=== PATIENT | female | born 1960 | race Caucasian/White ===

== ENCOUNTER 2018-01-06 09:54 | Day surgery (SDC) | payer OTHER ==
[~2018-01-06] VITALS: Ht 175.3 cm; Wt 98.4 kg
[~2018-01-06 09:54] MED LIST: ADVAIR 500/501 DISK IH; AMITIZA24 MICROGR PO; ATIVAN1 MG PO; BUSPAR7.5 MG PO; CARAFATE1 GM PO; COGENTIN2 MG PO; COLACE100 MG PO; COZAAR100 MG PO; CYCLOBENZAPRINE10 MG PO; DULCOLAX5 MG PO; DUONEB 2.5-0.5 M3 ML PEP; ENABLEX15 MG PO; ENULOSE10 GM/15 M PO; FANAPT12 MG PO; FOLIC ACID1 MG PO; GABAPENTIN600 MG PO; GEODON80 MG PO; INCRUSE ELLI62.5 MCG IH; IRON325 M1 PO; LEVOTHYROXINE75 MCG PO; LIPITOR40 MG PO; LOTRISONE15 GM TP; MYRBETRIQ50 MG PO; OXYBUTYNIN CHLO15 MG PO; PANTOPRAZOLE SO40 MG PO; PATADAY2.5 ML BOTH EYES; PROAIR HFA8.5 GM IH; ROXICODONE5 MG PO; SEROQUEL200 MG PO; SINEQUAN25 MG PO; SPIRIVA18 MCG IH; TOFRANIL25 MG PO; WARFARIN SODIUM5 MG PO; XYZAL5 MG PO; ZOFRAN4 MG PO
[2018-01-06 10:26] LABS: INTER. NORMALIZED RATIO 1.2
[2018-01-06 10:47] VITALS: BP 117/67
[2018-01-06 17:50] VITALS: BP 141/76
[2018-01-06 19:04] VITALS: BP 117/60
[2018-01-06 20:30] VITALS: BP 134/66
[2018-01-06 20:49] VITALS: BP 134/66
[2018-01-06 23:15] VITALS: BP 132/92
[2018-01-07 04:34] VITALS: BP 132/66
[2018-01-07 06:19] LABS: INTER. NORMALIZED RATIO 1.2
[2018-01-07 12:13] VITALS: BP 105/59
[2018-01-07 12:24] VITALS: BP 91/55
[2018-01-07 15:35] LABS: HEMATOCRIT 34.3 % (36.0-46.0); MCH 28.1 PG (29.0-34.0); MCHC 32.1 G/DL (30.0-36.0); MCV 87.5 FL (83-99); PLATELET COUNT 226 K/uL (156-360); RBC DIS.WIDTH-SD 57.1 % (39-53); RED BLOOD COUNT 3.92 M/uL (3.80-5.20); WHITE BLOOD COUNT 8.7 K/uL (4.1-10.2)
[2018-01-07 16:18] VITALS: BP 105/55
[2018-01-07 19:58] VITALS: BP 118/58
[2018-01-08 00:01] VITALS: BP 120/71
[2018-01-08 07:33] LABS: INTER. NORMALIZED RATIO 1.3
[2018-01-08 07:41] VITALS: BP 145/79
[2018-01-08 09:52] LABS: APPEARANCE CLEAR ((CLEAR)); BILIRUBIN NEGATIVE; BLOOD NEGATIVE; COLOR STRAW ((YELLOW)); GLUCOSE (STRIP) NEGATIVE; KETONES NEGATIVE; LEUKOCYTES NEGATIVE; NITRITE NEGATIVE; PROTEIN (STRIP) NEGATIVE; SPECIFIC GRAVITY 1.005 (1.000-1.030); UCUL ADDED? NO; UROBILINOGEN 0.2 MG/DL (0.2-1.0)
[2018-01-08 15:46] VITALS: BP 112/51
[2018-01-08 19:31] VITALS: BP 98/55
[2018-01-08 21:00] VITALS: BP 119/68
[2018-01-09 01:38] VITALS: BP 119/55
[2018-01-09 06:07] LABS: INTER. NORMALIZED RATIO 1.3
[2018-01-09 07:17] VITALS: BP 107/55
== END 2018-01-09 14:29 ==
LOC: SDC 09:54 → 3EAST 18:37 → 2SOUTH 18:37 → ENRESERV 19:19 → 3EAST 20:12
PROVIDERS: Hospitalist; Podiatrist Foot & Ankle Surgery
DX: S93.491A Sprain of other ligament of right ankle, initial encounter (principal); Q66.7 Congenital pes cavus; M19.071 Primary osteoarthritis, right ankle and foot; D16.31 Benign neoplasm of short bones of right lower limb; I95.81 Postprocedural hypotension; R26.89 Other abnormalities of gait and mobility; R13.10 Dysphagia, unspecified; R07.0 Pain in throat; I31.3 Pericardial effusion (noninflammatory); I10 Essential (primary) hypertension; E78.5 Hyperlipidemia, unspecified; F41.9 Anxiety disorder, unspecified; Z79.01 Long term (current) use of anticoagulants; I70.0 Atherosclerosis of aorta; J44.9 Chronic obstructive pulmonary disease, unspecified; Z88.5 Allergy status to narcotic agent; Z88.8 Allergy status to other drugs, medicaments and biological substances; Z91.018 Allergy to other foods
CPT/HCPCS: 71250; 73630; 76000; 81003; 85027; 85610; 85730; 87040; 92610 GN; 93005; 93306; 94640; 94799; 97530 GP; C1713; C1769; C9113; G0378; G8978 CL; G8979 CJ; G8980 GP CK; G8987 GO CL; G8988 GO CJ; G8989 GO CL; G8996 GN CH; G8997 GN CH; G8998 GN CH; J0690; J1100; J1170; J1885; J1940; J2250; J2795; J3010; J7030; Q0175; Q4125; S0020

== ENCOUNTER 2018-01-09 09:29 | Inpatient (IN) | payer OTHER ==
[~2018-01-09] VITALS: Ht 175.3 cm; Wt 95.4 kg
[2018-01-09 15:18] VITALS: BP 119/59
[2018-01-10 00:22] VITALS: BP 103/60
[2018-01-10 06:25] VITALS: BP 130/78
[2018-01-10 06:37] LABS: HEMATOCRIT 37.1 % (36.0-46.0); HEMOGLOBIN 11.6 G/DL (11.9-15.5); MCH 27.8 PG (29.0-34.0); MCHC 31.3 G/DL (30.0-36.0); MCV 88.8 FL (83-99); PLATELET COUNT 230 K/uL (156-360); RBC DIS.WIDTH-CV 17.5 % (11.8-14.6); RBC DIS.WIDTH-SD 57.5 % (39-53); RED BLOOD COUNT 4.18 M/uL (3.80-5.20); WHITE BLOOD COUNT 6.6 K/uL (4.1-10.2)
[2018-01-10 07:02] LABS: ALBUMIN 3.3 G/DL (3.2-4.8); ALKALINE PHOSPHATASE 65 IU/L (3-129); ALT (GPT) 15 IU/L (3-49); AST (GOT) 15 IU/L (2-34); CHLORIDE 104 MEQ/L (99-109); GFR ESTIMATE (CALCULATED) > 59 mL/min/; GLUCOSE 116 mg/dL (70-99); POTASSIUM 4.4 MEQ/L (3.7-5.4); SODIUM 140 MEQ/L (136-147); TOTAL BILIRUBIN 0.5 MG/DL (0.0-1.0); TOTAL PROTEIN 5.2 G/DL (6.4-8.3); UREA NITROGEN (BUN) 10 mg/dL (9-23)
[2018-01-10 15:26] VITALS: BP 112/53
[2018-01-10 16:22] LABS: INTER. NORMALIZED RATIO 1.3
[2018-01-11 04:58] VITALS: BP 137/75
[2018-01-11 05:26] LABS: INTER. NORMALIZED RATIO 1.2
[2018-01-11 14:00] VITALS: BP 87/52
[2018-01-11 15:32] VITALS: BP 92/50
[2018-01-11 17:27] VITALS: BP 118/67
[2018-01-12 05:00] VITALS: BP 123/71
[2018-01-12 06:49] LABS: INTER. NORMALIZED RATIO 1.4
[2018-01-12 07:45] VITALS: BP 113/65
[2018-01-12 13:31] VITALS: BP 110/57
[2018-01-12 15:45] VITALS: BP 92/55
[2018-01-13 03:52] VITALS: BP 124/72
[2018-01-13 05:35] LABS: BASOPHIL (%) 0.2 % (0-1); EOSINOPHIL (%) 1.3 % (0-5); EOSINOPHIL COUNT 0.1 K/uL (0-0.3); HEMATOCRIT 36.6 % (36.0-46.0); HEMOGLOBIN 11.5 G/DL (11.9-15.5); IMMATURE GRANULOCYTE (%) 0.4 % (0.0-0.7); LYMPHOCYTE (%) 16.2 % (15-42); LYMPHOCYTE COUNT 1.3 K/uL (1.0-2.8); MCH 27.4 PG (29.0-34.0); MCHC 31.4 G/DL (30.0-36.0); MCV 87.1 FL (83-99); MONOCYTE (%) 5.4 % (3-12); MONOCYTE COUNT 0.4 K/uL (0-0.8); NEUTROPHIL (%) 76.5 % (45-76); NEUTROPHIL COUNT 6.3 K/uL (1.8-6.4); PLATELET COUNT 230 K/uL (156-360); RBC DIS.WIDTH-CV 17.4 % (11.8-14.6); RBC DIS.WIDTH-SD 55.6 % (39-53); WHITE BLOOD COUNT 8.2 K/uL (4.1-10.2)
[2018-01-13 05:37] LABS: INTER. NORMALIZED RATIO 1.8
[2018-01-13 06:53] LABS: CHLORIDE 106 MEQ/L (99-109); CREATININE 0.9 MG/DL (0.6-1.3); GFR ESTIMATE (CALCULATED) > 59 mL/min/; GLUCOSE 96 mg/dL (70-99); POTASSIUM 4.8 MEQ/L (3.7-5.4); SODIUM 142 MEQ/L (136-147); UREA NITROGEN (BUN) 14 mg/dL (9-23)
[2018-01-13 08:35] LABS: THYROTROPIN (TSH) 1.5 MIU/L (0.4-5.5)
[2018-01-13 15:34] VITALS: BP 118/71
[2018-01-14 06:33] VITALS: BP 140/85
[2018-01-14 06:38] LABS: INTER. NORMALIZED RATIO 2.5
[2018-01-14 15:54] VITALS: BP 139/78
[2018-01-15 06:05] VITALS: BP 140/83
[2018-01-15 06:42] LABS: INTER. NORMALIZED RATIO 2.7
[2018-01-15 15:16] VITALS: BP 134/71
[2018-01-16 03:17] VITALS: BP 144/66
[2018-01-16 05:49] LABS: BASOPHIL (%) 0.3 % (0-1); EOSINOPHIL (%) 1.5 % (0-5); EOSINOPHIL COUNT 0.1 K/uL (0-0.3); HEMATOCRIT 36.4 % (36.0-46.0); HEMOGLOBIN 11.6 G/DL (11.9-15.5); IMMATURE GRANULOCYTE (%) 0.3 % (0.0-0.7); LYMPHOCYTE (%) 30.7 % (15-42); LYMPHOCYTE COUNT 1.8 K/uL (1.0-2.8); MCH 27.4 PG (29.0-34.0); MCHC 31.9 G/DL (30.0-36.0); MCV 86.1 FL (83-99); MONOCYTE (%) 6.5 % (3-12); MONOCYTE COUNT 0.4 K/uL (0-0.8); NEUTROPHIL (%) 60.7 % (45-76); NEUTROPHIL COUNT 3.6 K/uL (1.8-6.4); PLATELET COUNT 242 K/uL (156-360); RBC DIS.WIDTH-SD 53.1 % (39-53); RED BLOOD COUNT 4.23 M/uL (3.80-5.20)
[2018-01-16 06:03] LABS: INTER. NORMALIZED RATIO 2.6
[2018-01-16 06:13] LABS: CHLORIDE 106 MEQ/L (99-109); GFR ESTIMATE (CALCULATED) > 59 mL/min/; GLUCOSE 89 mg/dL (70-99); POTASSIUM 4.3 MEQ/L (3.7-5.4); SODIUM 141 MEQ/L (136-147); UREA NITROGEN (BUN) 17 mg/dL (9-23)
[2018-01-16 15:48] VITALS: BP 108/67
[2018-01-17 07:05] VITALS: BP 154/77
[2018-01-17 15:22] VITALS: BP 150/74
[2018-01-18 06:12] VITALS: BP 154/81
[2018-01-18 15:00] VITALS: BP 103/60
[2018-01-19 04:58] VITALS: BP 136/84
[2018-01-19 15:33] VITALS: BP 114/60
[2018-01-20 05:55] VITALS: BP 124/71
[2018-01-20 15:37] VITALS: BP 112/76
[2018-01-21 06:21] VITALS: BP 136/77
[2018-01-21 06:26] LABS: INTER. NORMALIZED RATIO 1.8
[2018-01-21 16:09] VITALS: BP 115/75
[2018-01-22 05:14] VITALS: BP 105/72
[2018-01-22] MEDS ORDERED: WARFARIN SODIUM5 MG PO (15:15)
[2018-01-22] MEDS ORDERED: Cortaid,Hytone 1% Cr TP (15:15)
[2018-01-22] MEDS ORDERED: POLYETHYLENE GL17 GM PO (15:15)
[2018-01-22] MEDS ORDERED: OXYCODONE HCL5 MG PO (15:15)
[2018-01-22] MEDS ORDERED: LORATADINE10 M2 PO (15:15)
[2018-01-22 15:27] VITALS: BP 110/61
[2018-01-23 06:37] VITALS: BP 118/68
[2018-01-24 05:22] LABS: LUPA PHOSPHOLIPID NEUTRALIZ Negative (Negative)
== END 2018-01-23 10:54 | DRG 560 ==
LOC: 3WEST 09:29 → ENRESERV 15:04 → 3WEST 01-18 06:03 → ENPENDDIS 01-23 → 3WEST 01-23 10:54
PROVIDERS: Family Medicine Sports Medicine; Physical Medicine & Rehabilitation Pain Medicine; Psychiatry & Neurology Neurology
PROC: F07M0ZZ Range of Motion and Joint Mobility Treatment of Musculoskeletal System - Whole Body (ICD-10-PCS; principal; 2018-01-09)
DX: Z47.89 Encounter for other orthopedic aftercare (principal); R26.9 Unspecified abnormalities of gait and mobility; E78.5 Hyperlipidemia, unspecified; I10 Essential (primary) hypertension; F41.1 Generalized anxiety disorder; E78.00 Pure hypercholesterolemia, unspecified; J81.1 Chronic pulmonary edema; E03.9 Hypothyroidism, unspecified; R53.1 Weakness; M25.571 Pain in right ankle and joints of right foot; M79.671 Pain in right foot; D64.9 Anemia, unspecified; I31.3 Pericardial effusion (noninflammatory); D62 Acute posthemorrhagic anemia; F43.10 Post-traumatic stress disorder, unspecified; F32.9 Major depressive disorder, single episode, unspecified; F31.9 Bipolar disorder, unspecified; F60.3 Borderline personality disorder; Z53.20 Procedure and treatment not carried out because of patient's decision for unspecified reasons; M25.572 Pain in left ankle and joints of left foot; F60.9 Personality disorder, unspecified; K21.9 Gastro-esophageal reflux disease without esophagitis; K59.00 Constipation, unspecified; J90 Pleural effusion, not elsewhere classified; M54.5 Low back pain; I95.9 Hypotension, unspecified; M19.071 Primary osteoarthritis, right ankle and foot; M89.9 Disorder of bone, unspecified; Z79.01 Long term (current) use of anticoagulants; Z91.5 Personal history of self-harm; Z86.711 Personal history of pulmonary embolism; Q66.7 Congenital pes cavus
CPT/HCPCS: 80048; 80053; 81240 90; 83090 90; 84443; 85025; 85027; 85240 90; 85300 90; 85610; 85613 90; 86146 90; 86147 90; 94640; 94760; 94799; 97110 GO; 97530 GP; J7040